=== PATIENT | male | born 1945 | race Caucasian/White ===

== ENCOUNTER → 2016-08-09 | Day surgery (SDC) | payer OTHER ==
[~2016-08-09] MED LIST: BACTRIM DS TABL1 TA1 PO; MULTI-DAY VITAM1 TAB; MULTIVITAMIN1 UDCAP PO; NAPROSYN500 MG PO; VICODIN 5/1 TAB 5/50 PO
== END | disposition home or self-care (01) ==
LOC: COPS 11:29
PROC: 0DJD8ZZ Inspection of Lower Intestinal Tract, Via Natural or Artificial Opening Endoscopic (ICD-10-PCS; principal; 2016-08-09)
DX: Z12.11 Encounter for screening for malignant neoplasm of colon (principal); K62.5 Hemorrhage of anus and rectum; Q27.33 Arteriovenous malformation of digestive system vessel; Z85.46 Personal history of malignant neoplasm of prostate; Z85.51 Personal history of malignant neoplasm of bladder; Z85.828 Personal history of other malignant neoplasm of skin